=== PATIENT | female | born 1955 | race Caucasian/White ===

== ENCOUNTER → 2023-09-10 07:10 | Outpatient (REF) | payer MEDICARE, SELFPAY | LOC: RAD 07:10 | PROVIDERS: ATTENDING PHYSICIAN Internal Medicine Critical Care Medicine | DX: Z87.01 Personal history of pneumonia (recurrent) (principal) | CPT/HCPCS: 71046 ==

== ENCOUNTER → 2023-12-10 06:59 | Outpatient (REF) | payer MEDICARE, SELFPAY | LOC: HWRAD 06:59 | PROVIDERS: ATTENDING PHYSICIAN Physician Assistant Medical | DX: Z78.0 Asymptomatic menopausal state (principal) | CPT/HCPCS: 77080 ==

== ENCOUNTER → 2024-05-09 07:33 | Outpatient (REF) | payer MEDICARE, SELFPAY | LOC: RAD 07:33 | PROVIDERS: ATTENDING PHYSICIAN Physician Assistant; FAMILY PHYSICIAN Physician Assistant Medical | DX: J40 Bronchitis, not specified as acute or chronic (principal); R04.2 Hemoptysis | CPT/HCPCS: 71046 ==

== ENCOUNTER → 2024-08-18 08:07 | Outpatient (REF) | payer MEDICARE, SELFPAY ==
[2024-08-18 09:43] LABS: % Basophils 0.9 % (0-2); % Eosinophils 3.6 % (0-6); % Immature Granulocytes 0.5 % (0-0.5); % Lymphocytes 29.5 % (20.5-51.1); % Monocytes 8.3 % (1.7-9.3); % Neutrophils 57.2 % (42.2-75.2); Absolute Basophils 0.1 10^3/uL (0-0.2); Absolute Eosinophils 0.2 10^3/uL (0-0.7); Absolute Lymphocytes 1.9 10^3/uL (1.2-3.4); Absolute Monocytes 0.5 10^3/uL (0.1-0.6); Absolute Neutrophils 3.7 10^3/uL (1.4-6.5); Hematocrit 46.1 % (37.0-47.0); Hemoglobin 14.4 g/dL (12.0-16.0); Mean Corp Hgb Conc. 31.2 g/dL (33.0-37.0); Mean Corpuscular Hgb 28.9 pg (27.0-31.0); Mean Corpuscular Volume 92.6 fL (81.0-99.0); Mean Platelet Volume 10.3 fL (7.4-10.4); Nucleated Red Blood Cells % 0 %; Platelet Count 235 10^3/uL (130-400); Red Blood Cell Count 4.98 10^6/uL (4.20-5.40); Red Cell Dist. Width 13.2 % (11.5-14.5); White Blood Cell Count 6.5 10^3/uL (4.8-10.8)
[2024-08-18 10:46] LABS: Erythrocyte Sed Rate 2 mm/hour (0-20)
== END ==
LOC: RAD 08:07
PROVIDERS: ATTENDING PHYSICIAN Orthopaedic Surgery; FAMILY PHYSICIAN Physician Assistant Medical
DX: Z96.652 Presence of left artificial knee joint (principal); Z96.651 Presence of right artificial knee joint; M25.562 Pain in left knee; M25.561 Pain in right knee
CPT/HCPCS: 36415; 78315; 85025; 85652; 86140; A9503

== ENCOUNTER → 2024-10-26 06:28 | Outpatient (REF) | payer MEDICARE, SELFPAY | LOC: HWRAD 06:28 | PROVIDERS: ATTENDING PHYSICIAN Physician Assistant Medical | DX: M70.72 Other bursitis of hip, left hip (principal) | CPT/HCPCS: 73502 ==

== ENCOUNTER 2024-12-19 10:44 | Inpatient (IN) | payer MEDICARE, SELFPAY ==
[2024-12-19] VITALS (9 sets, daily range): BP systolic 123–175; BP diastolic 73–93; BMI 40.8
[2024-12-19] MEDS: CELEBREX 200 MG PO (11:00)
[2024-12-19] MEDS: TYLENOL 650 MG PO ×3 (11:01→20:22)
[2024-12-19] MEDS: NORMOSOL-R/PLASMALYTE-A 1000 IV ×2 (11:11→17:20)
--- NOTE | 2024-12-19 12:32 | W.PN.UPDATE ---
Update Note
Progress Note Update
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
- EARLY DISCHARGE
DVT prophylaxis - ASA, b/l venous foot pumps
HTN - + parameters - monitor BP
Bronchiectasis with chronic cough and previous hemoptysis
Chronic dyspnea on exertion
- Monitor O2
- IS
- Decadron
GERD - add Pepcid HS
Fibromyalgia - monitor pain and adjust pain meds as indicated
MSSA pneumonia with associated sepsis 12/2022 - IV Ancef [place]-op
- Cefadroxil upon d/c
OA s/p R TKA, 2009, and L TKA, 2007, by Dr Swanson
HLD
Venous varicosities
Chronic lymphedema
Pulmonary nodule
Diverticulosis
Nephrolithiasis
Migraines
Multilevel degenerative disc disease
Rheumatoid arthritis
Hypothyroidism
Anxiety
Prediabetes, A1c 5.7
Morbid obesity, BMI 40.4
[2024-12-19] MEDS: SUBLIMAZE 50 MCG IV ×2 (16:28→16:40)
[2024-12-19] MEDS: ROXICODONE 5 MG PO (16:54)
[2024-12-19] MEDS: CYMBALTA DELAYED RELEASE 60 MG PO (17:20)
[2024-12-19] MEDS: ASPIRIN 325 MG PO (17:20)
--- NOTE | 2024-12-19 17:28 | W.PN.UPDATE ---
Update Note
Progress Note Update
Patient seen and examined s/p R TKR revision. Complains of pain. VSS, Pulm: nonlabored. CV: Regular. Abd: benign. Ext: RLE: able to fully extend. Calf soft. NVI distally. Dressing CDI. Postop xray as expected. ASA for DVT
prophylaxis. Plan for discharge home tomorrow with outpatient PT to begin or Wednesday.
--- NOTE | 2024-12-19 17:51 | PTCARENOTE ---
pt received from [facility]. right knee dressing intact. pt stated 9/10 pain in right knee. pain med had been given in [facility] now pt states it feels better. pt oob with rw and one person min assist to bsc. 2lnc breath sounds clear.
[2024-12-19] MEDS: ROXICODONE 10 MG PO (20:19)
[2024-12-19] MEDS: COLACE 100 MG PO (20:21)
[2024-12-19] MEDS: SENOKOT 17.2 MG PO (20:21)
[2024-12-19] MEDS: SYNTHROID 175 MCG PO (20:21)
[2024-12-19] MEDS: PEPCID 20 MG PO (20:22)
[2024-12-19] MEDS: DECADRON 4 MG PO (20:22)
[2024-12-19] MEDS: LYRICA 150 MG PO (20:23)
[2024-12-19] MEDS: ANCEF 5 IV (20:24)
[2024-12-19] MEDS: BACTROBAN 2% OINTMENT 1 APPLIC NASAL (20:24)
[2024-12-19] MEDS: TOPAMAX 50 MG PO (22:29)
[2024-12-19] MEDS: ZESTRIL 20 MG PO (22:33)
[2024-12-20] MEDS: TYLENOL 650 MG PO ×3 (00:33→11:08)
[2024-12-20] MEDS: ROXICODONE 5 MG PO ×2 (00:33→05:39)
[2024-12-20 03:00] VITALS: BP 165/96
[2024-12-20] MEDS: ANCEF 5 IV (03:09)
[2024-12-20] MEDS: TYLENOL PO (04:42)
[2024-12-20] MEDS: SYNTHROID 175 MCG PO (05:39)
--- NOTE | 2024-12-20 06:03 | PTCARENOTE ---
late entry: 12/19 2014 pt with morphine allergy listed, pt states n/v post IV morphine in the past is the only reaction she has had. Jo Ann Reynolds NP notified and ok for patient to receive Roxicodone.
--- NOTE | 2024-12-20 07:05 | W.PN.ORTHO ---
Today's Communication / Plan
-
Plan for discharge home later today with outpatient PT on
Assessment
.
Distal Motor Intact: Yes
Dressing:
Clean, dry and intact.
Assessment:
Stable s/p right TKrevision
Plan
.
Surgery / Date: 12/19/2024 Revision R TKR DB
DVT Prophylaxis: Aspirin
Activity:
Out of bed.
PT/OT
Discharge Plan: Home w/ Outpatient PT
Subjective
.
.:
Patient resting comfortably. OOB to commode yesterday. Tolerating pain meds
Vital Signs and Labs
.
Vital Signs and Labs:
Temp Pulse Resp BP Pulse Ox
98.3 F 77 16 165/96 90
12/20/24 03:00 12/20/24 03:00 12/20/24 03:00 12/20/24 03:00 12/20/24 03:00
Non-invasive Hgb result: 13.4
Physical Exam
-
Pulm: nonlabored
CV: regular
RLE: Able to fully extend. NVI distally. Calf soft.
[2024-12-20 07:10] VITALS: BP 156/95
[2024-12-20] MEDS: LYRICA 150 MG PO (07:48)
[2024-12-20] MEDS: VITAMIN D3 (cholecalciferol) 50 MCG PO (07:48)
[2024-12-20] MEDS: ASPIRIN 325 MG PO (07:48)
[2024-12-20] MEDS: ROXICODONE 10 MG PO ×2 (07:49→11:53)
[2024-12-20] MEDS: DECADRON 4 MG PO (07:49)
[2024-12-20] MEDS: COLACE 100 MG PO (07:49)
[2024-12-20] MEDS: CYMBALTA DELAYED RELEASE 60 MG PO (07:50)
[2024-12-20] MEDS: CELEBREX 200 MG PO (07:50)
[2024-12-20] MEDS: VITAMIN B-12 1000 MCG PO (07:50)
[2024-12-20] MEDS: SENOKOT 17.2 MG PO (07:50)
[2024-12-20] MEDS: BACTROBAN 2% OINTMENT 1 APPLIC NASAL (07:51)
[2024-12-20 08:57] VITALS: BP 138/83; BP 160/79; PULSE 69
--- NOTE | 2024-12-20 08:59 | W.PN.ORTHO ---
Today's Communication / Plan
-
Await PT recs. Pt did well w/ OT this AM.
D/c today if remaining clinically stable.
Assessment
.
Distal Motor Intact: Yes
Dressing:
Clean, dry and intact.
Assessment:
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
- EARLY DISCHARGE
DVT prophylaxis - ASA, b/l venous foot pumps
HTN - + parameters - BPs elevated initially but improving w/ resumption of Lisinopril HS, adequate pain control
Bronchiectasis with chronic cough and previous hemoptysis
Chronic dyspnea on exertion
- O2 stable on RA w/ IS and Decadron
GERD - added Pepcid HS
Fibromyalgia - pain well tolerated by POD 1
MSSA pneumonia with associated sepsis 12/2022 - IV Ancef [place]-op
- Cefadroxil upon d/c
OA s/p R TKA, 2009, and L TKA, 2007, by Dr Swanson
HLD
Venous varicosities
Chronic lymphedema
Pulmonary nodule
Diverticulosis
Nephrolithiasis
Migraines
Multilevel degenerative disc disease
Rheumatoid arthritis
Hypothyroidism
Anxiety
Prediabetes, A1c 5.7
Morbid obesity, BMI 40.4
Post-op meds were sent during pre-operative appointment
Plan
.
Surgery / Date: Revision of R TKA w/ Dr Swanson 12/19/24
DVT Prophylaxis: Aspirin
Activity:
Out of bed.
PT/OT
Discharge Plan: Home w/ Outpatient PT
Subjective
.
.:
Patient appearing to rest comfortably in her chair.
Reporting high levels of pain overnight. Pain, fortunately, relieved w/ current pain meds.
Denies any new significant complaints.
Anxious but eager for d/c today.
Vital Signs and Labs
.
Vital Signs and Labs:
Temp Pulse Resp BP Pulse Ox
98.5 F 74 16 156/95 94
12/20/24 07:10 12/20/24 07:10 12/20/24 07:10 12/20/24 07:10 12/20/24 07:10
Non-invasive Hgb result: 13.4
Physical Exam
-
HEENT: No pallor, cyanosis, or jaundice. Throat clear.
NECK: Supple. No JVD.
RESPIRATORY: Lungs clear to auscultation.
CVS: S1, S2 normal. RRR.�
ABDOMEN: Soft, non-tender. No distension. Morbidly obese.
EXTREMITIES: Expected post-surgical R knee edema. Strength equal, no calf pain with palpation/dorsiflexion. Calves soft.
CHIEF WHARFINGER: AOx3. No focal deficits. chief technician x ray grossly intact
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
[2024-12-20 09:18] VITALS: BP 140/75; BP 141/79; PULSE 67
[2024-12-20 11:30] VITALS: BP 146/74
[2024-12-20 11:32] VITALS: BMI 40.8
--- NOTE | 2024-12-20 13:00 | PTCARENOTE ---
Discharge order written. Instructions reviewed with patient. IV site removed. Volunteer escort by wheelchair to husbands car at [facility].
== END 2024-12-20 12:47 | disposition home or self-care (01) | DRG 467 ==
LOC: 2 SOUTH 10:44
PROVIDERS: ADMITTING PHYSICIAN Orthopaedic Surgery; FAMILY PHYSICIAN Physician Assistant Medical; REFERRING PHYSICIAN Nuclear Medicine Nuclear Cardiology
PROC: 0SRC0J9 Replacement of Right Knee Joint with Synthetic Substitute, Cemented, Open Approach (ICD-10-PCS; 2024-12-19)
PROC: 0SPC0JZ Removal of Synthetic Substitute from Right Knee Joint, Open Approach (ICD-10-PCS; 2024-12-19)
DX: T84.032A Mechanical loosening of internal right knee prosthetic joint, initial encounter (principal); Z68.41 Body mass index [BMI] 40.0-44.9, adult; I10 Essential (primary) hypertension; M79.7 Fibromyalgia; E66.01 Morbid (severe) obesity due to excess calories; F41.9 Anxiety disorder, unspecified; K21.9 Gastro-esophageal reflux disease without esophagitis; E78.5 Hyperlipidemia, unspecified; I89.0 Lymphedema, not elsewhere classified; M06.9 Rheumatoid arthritis, unspecified; E03.9 Hypothyroidism, unspecified; R73.03 Prediabetes; Y79.2 Prosthetic and other implants, materials and accessory orthopedic devices associated with adverse incidents; Z88.5 Allergy status to narcotic agent; Z96.652 Presence of left artificial knee joint; Z98.41 Cataract extraction status, right eye; Z98.42 Cataract extraction status, left eye
CPT/HCPCS: 73560; 97162; 97166; 97535

== ENCOUNTER 2025-02-09 15:41 | Inpatient (IN) | payer MEDICARE, SELFPAY ==
[2025-02-09 12:11] VITALS: BP 136/82
[2025-02-09 12:33] LABS: Hematocrit 41.6 % (37.0-47.0); Hemoglobin 13.0 g/dL (12.0-16.0); Mean Corp Hgb Conc. 31.3 g/dL (33.0-37.0); Mean Corpuscular Volume 90.8 fL (81.0-99.0); Nucleated Red Blood Cells % 0 %; Platelet Count 315 10^3/uL (130-400); Red Cell Dist. Width 13.5 % (11.5-14.5)
[2025-02-09 12:50] LABS: ALT (SGPT) 29 U/L (0-35); AST (SGOT) 25 U/L (14-36); Albumin 4.5 g/dl (3.5-5.0); Alkaline Phosphatase 123 U/L (38-126); Blood Urea Nitrogen 17 mg/dl (7-17); Calcium 9.8 mg/dl (8.4-10.2); Carbon Dioxide 22 mmol/L (22-30); Chloride 110 mmol/L (98-107); Glucose 109 mg/dl (70-99); Potassium 4.4 mmol/L (3.5-5.1); Sodium 142 mmol/L (135-145); Total Protein 7.7 g/dl (6.3-8.2); eGFR > 60.00
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
[2025-02-09 16:54] LABS: C-Reactive Protein 122.50 mg/L (0.0-10.00)
--- NOTE | 2025-02-09 18:25 | PTCARENOTE ---
Patient arrived from ED @18:25 with (R) knee swelling, currently on Regular diet, will be NPO for OR tomorrow; admission questions answered at bedside, with give detailed report to nightshift RN to continue with assessment and care.
[2025-02-09 18:41] VITALS: BP 138/74
--- NOTE | 2025-02-09 18:55 | CON.ORTHO ---
Consultation
-
Date/Time Consultation Requested: 02/09/25
Date/Time Consultation Performed: 02/09/25 @6pm
Requesting Provider: hospitalist
Performing Provider: Tracey Penn PA-C, Fredo Swanson MD
Reason for Consultation: right knee drainage
Consultation - Orthopedics
History
HPI: 69yo female admitted to for right knee drainage. She is s/p right revision TKA on 12/19/[address] Swanson. She presented to the outpatient office earlier today for drainage from the distal aspect of her scar. She states that she noticed a
scab that fell off and then began to drain. She was sent to the ER from the office for admission and plan for OR tomorrow for right knee washout. Currently, she is resting in bed. She reports mild discomfort to the knee. She feels the knee looks
more red now than it did in the office earlier today.
PAST MEDICAL HISTORY: Essential Hypertension, Hyperlipidemia, Hypothyroidism, Bronchiectasis, Fibromyalgia, Migraine Headache, Rheumatoid Arthritis/Osteoarthritis, Anxiety, Chronic Lower Extremity Lymphedema, Obstructive Sleep Apnea, Morbid Obesity
due to Excess Calories
PAST SURGICAL HISTORY: Cholecystectomy, Section, Bilateral Knee Replacements, Right revision TKA
SOCIAL HISTORY: denies tobacco, alcohol. lives with family
FAMILY HISTORY: non contributory
REVIEW OF SYSTEMS: 12 point review of systems obtained and negative except those mentioned in the HPI
Allergies / Home Medications
Allergy/AdvReac Type Severity Reaction Status Date / Time
morphine (Morphine) Allergy nausea and Verified 12/19/24 10:47
vomiting
�Medication �Instructions �Recorded
duloxetine 60 mg capsule,delayed 60 mg PO DAILY Mental 01/05/23
release Health/Anxiety
levothyroxine 175 mcg tablet 175 mcg PO DAILY Thyroid 01/05/23
pregabalin 150 mg capsule 150 mg PO BID Pain 01/05/23
topiramate 50 mg tablet 50 mg PO HS Mental Health/Anxiety 01/05/23
cholecalciferol (vitamin D3) 50 50 mcg PO DAILY 12/08/24
mcg (2,000 unit) tablet
acetaminophen 500 mg tablet 1,000 mg (2 x 500 mg) PO Q6H pain 12/14/24
(Tylenol Extra Strength) #60 tabs
lisinopril 20 mg tablet 20 mg PO HS Blood Pressure #1 tab 12/14/24
oxycodone 5 mg tablet 5 mg PO Q6H PRN moderate-severe 02/09/25
pain
sulindac 200 mg tablet 200 mg PO BID 02/09/25
Vital Signs / Lab Results
Temp Pulse Resp BP Pulse Ox
99.0 F 80 18 138/74 98
02/09/25 18:41 02/09/25 18:41 02/09/25 18:41 02/09/25 18:41 02/09/25 18:41
02/09/25 12:18
02/09/25 12:18
LABS:
ESR 56
CRP 122.50
Xrays obtained in outpatient office which showed well positioned right revision TKA. no obvious fracture or dislocation
PHYSICAL EXAM:
General: AAOx3, no acute distress
HEENT: NCAT, sclera anicteric, normal hearing
Heart: No JVD
Lungs: Normal work of breathing on room air
MSK: Focused exam of right knee reveals surgical scar to anterior knee. there is a small break in the skin at the distal aspect with drainage. mild erythema about the scar. ROM 0-80. calf soft and nontender. NVI distally
Assessment / Plan
ASSESSMENT/PLAN:
Right knee drainage s/p right revision TKA 12/19/24
--WBAT RLE
--Dressing of adaptic, gauze, and kerlix to the wound. Change/reinforce as needed
--Plan for OR tomorrow for right knee I&D under the direction of Dr. Swanson
--NPO after midnight
--Please hold antibiotics until after the OR
--Pain management as needed
--ID consult
[2025-02-09] MEDS: LYRICA 150 MG PO (19:16)
[2025-02-09] MEDS: ZESTRIL 20 MG PO (21:20)
[2025-02-09] MEDS: TOPAMAX 50 MG PO (21:20)
[2025-02-09 23:10] VITALS: BP 111/44
[2025-02-10] VITALS (13 sets, daily range): BP systolic 114–182; BP diastolic 56–121; PULSE 77
[2025-02-10 06:27] LABS: Hematocrit 39.2 % (37.0-47.0); Hemoglobin 12.3 g/dL (12.0-16.0); Mean Corp Hgb Conc. 31.4 g/dL (33.0-37.0); Mean Corpuscular Volume 92.5 fL (81.0-99.0); Platelet Count 275 10^3/uL (130-400); Red Cell Dist. Width 13.6 % (11.5-14.5)
[2025-02-10] MEDS: SYNTHROID 175 MCG PO (06:38)
[2025-02-10 06:42] LABS: Blood Urea Nitrogen 13 mg/dl (7-17); Calcium 9.1 mg/dl (8.4-10.2); Carbon Dioxide 24 mmol/L (22-30); Chloride 112 mmol/L (98-107); Glucose 94 mg/dl (70-99); Potassium 4.4 mmol/L (3.5-5.1); Sodium 143 mmol/L (135-145); eGFR > 60.00
[2025-02-10] MEDS: LYRICA 150 MG PO ×2 (08:53→19:36)
[2025-02-10] MEDS: CYMBALTA DELAYED RELEASE 60 MG PO (08:53)
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
[2025-02-10] MEDS: DILAUDID 0.5 MG IV ×2 (11:58→12:09)
[2025-02-10] MEDS: TORADOL 15 MG IV (12:02)
[2025-02-10] MEDS: DILAUDID 0.25 MG IV (12:27)
--- NOTE | 2025-02-10 12:33 | W.PN.HOSP.TC ---
Today's Communication/Plan
-
OR today for I&D
F/u cultures
abx as per ID
Assessment / Plan
Assessment / Plan
Physical Exam
General: Comfortable and Conversant
HEENT: Anicteric and Moist mucous membranes
Respiratory: Clear and Non Labored Respirations
Cardiac: S1/S2 and Regular Rhythm
GI: Soft and Non Tender
Rectal: Deferred by Provider
Musculoskeletal: No Clubbing, No Cyanosis and Edema, Right Lower Extremity
Skin: Warm, Dry and Other (Increased erythema and warmth of right knee; Noted to have increased drainage from small opening along the inferior incision)
Neuro: Awake, Alert, Oriented and Nonfocal/grossly intact
Psych: Calm
Increased Redness/Swelling Right Knee, possibly infected hematoma vs prosthetic joint infection
-Consult Orthopedics
--Dressing of adaptic, gauze, and kerlix to the wound. Change/reinforce as needed
- OR today for I&D
-Hold on antibiotics pending deep cultures obtain in OR
-Consult Infectious Disease
Essential Hypertension
-Continue lisinopril
Hypothyroidism
-Continue levothyroxine
Anxiety
-Continue duloxetine
Fibromyalgia
-Continue duloxetine and pregabalin
Migraine Headache
-Continue Topamax
DVT Proph:
Code Status: Full Code
Anticipated Discharge: > 48 hours
Subjective/Interval History
-
Date of Service: February 10, 2025
no acute events
Objective Data
-
Labs:
Laboratory Results
02/10/25
05:22
WBC 6.7
Hgb 12.3
Hct 39.2
Plt Count 275
Sodium 143
Potassium 4.4
Chloride 112 H
Carbon Dioxide 24
BUN 13
Creatinine 0.8
Glucose 94
Calcium 9.1
Vital Signs:
Vital Signs
Temp Pulse Resp BP Pulse Ox
97.9 F 65 15 179/87 100
02/10/25 11:53 02/10/25 12:06 02/10/25 12:06 02/10/25 12:06 02/10/25 12:06
I&O
02/09/25 02/10/25 02/11/25
06:59 06:59 06:59
Intake Total 240 / 240
Balance 240 / 240
Review of Systems
-
All other systems: Reviewed and negative
Physical Exam
-
General: No Apparent Distress
HEENT: Negative Oxygen
Respiratory: Clear to Auscultation
Cardiac: Regular Rhythm and S1/S2; Negative Murmur or Rub
GI: Soft, Nontender and Nondistended
Musculoskeletal: No Edema
Neuro: Awake, Alert, Oriented, No Motor Deficits and Nonfocal/Grossly Intact
Data Reviewed
-
Diagnostic Radiology: Report Reviewed by me
Labs: Labs Reviewed by me
--- NOTE | 2025-02-10 13:00 | PTCARENOTE ---
Pt received from the PACU via bed. Transport was w/o incident. Pt is AAOx3, Denies nausea and reports pain as mild. Will medicate for pain as ordered when needed. Pt able to wiggle toes, point and flex right foot, DP pulse WNL. Pt reports she has
full sensation to right leg. Ice pack applied as ordered. VSS, Pt is afebrile. Pt instructed on plan of care. Call gracia within reach.
[2025-02-10] MEDS: VANCOCIN 200 IV (14:51)
[2025-02-10] MEDS: STERILE WATER FOR INJECTION 10 ML IV ×2 (17:17→21:43)
[2025-02-10] MEDS: MAXIPIME 1000 MG IV ×2 (17:17→21:43)
[2025-02-10] MEDS: ROXICODONE 5 MG PO (17:28)
[2025-02-10] MEDS: TOPAMAX 50 MG PO (21:42)
[2025-02-10] MEDS: ZESTRIL 20 MG PO (21:42)
[2025-02-11] VITALS (8 sets, daily range): BP systolic 112–171; BP diastolic 51–88; PULSE 60–64; O2SAT 95; BMI 39.7
[2025-02-11] MEDS: STERILE WATER FOR INJECTION 10 ML IV ×4 (03:53→21:25)
[2025-02-11] MEDS: MAXIPIME 1000 MG IV ×4 (03:54→21:25)
[2025-02-11 05:30] LABS: ALT (SGPT) 20 U/L (0-35); AST (SGOT) 16 U/L (14-36); Albumin 3.7 g/dl (3.5-5.0); Alkaline Phosphatase 107 U/L (38-126); Blood Urea Nitrogen 17 mg/dl (7-17); Calcium 9.4 mg/dl (8.4-10.2); Carbon Dioxide 23 mmol/L (22-30); Chloride 109 mmol/L (98-107); Glucose 119 mg/dl (70-99); Potassium 4.6 mmol/L (3.5-5.1); Sodium 138 mmol/L (135-145); Total Protein 6.4 g/dl (6.3-8.2); eGFR > 60.00
[2025-02-11 05:31] LABS: Hematocrit 36.9 % (37.0-47.0); Hemoglobin 11.6 g/dL (12.0-16.0); Mean Corp Hgb Conc. 31.4 g/dL (33.0-37.0); Mean Corpuscular Volume 92.0 fL (81.0-99.0); Platelet Count 280 10^3/uL (130-400); Red Cell Dist. Width 13.2 % (11.5-14.5)
[2025-02-11] MEDS: SYNTHROID 175 MCG PO (05:46)
--- NOTE | 2025-02-11 08:29 | W.PN.ORTHO ---
Today's Communication / Plan
-
POD#1 right knee I&D under the direction of Dr. Swanson
--WBAT RLE. Ambulate with walker as needed
--PT/OT
--Intraoperative cultures pending. Superficial culture gram stain with few WBC, rare gram negative rods. Deep culture gram stain with rare WBC, no organisms. Will continue to follow
--Blood cultures from 02/09/25 with no growth to date
--Appreciate ID consult. Currently on cefepime
--Continue with pain management as needed
--Maintain dressing
--Will continue to follow along
Assessment
.
Distal Motor Intact: Yes
Dressing:
Clean, dry and intact.
Plan
.
Surgery / Date: Right Knee I&D
Activity:
Out of bed.
PT/OT
Subjective
.
.:
Patient resting comfortably in bed this morning. She reports soreness to her knee. She has been up to the bathroom and around the room. She is ambulating with a walker.
Vital Signs and Labs
.
Vital Signs and Labs:
Lab Results
02/11/25 04:10
02/11/25 04:10
Temp Pulse Resp BP Pulse Ox
98.2 F 54 16 171/88 93
02/11/25 07:10 02/11/25 07:10 02/11/25 07:10 02/11/25 07:10 02/11/25 07:10
Physical Exam
-
Directed exam of right knee performed. Mepilex dressing in place. No drainage or erythema. Mild expected edema. Mild general TTP about the knee. ROM 0-70. Calf soft and nontender. NVI distally
[2025-02-11] MEDS: CYMBALTA DELAYED RELEASE 60 MG PO (09:16)
[2025-02-11] MEDS: LYRICA 150 MG PO ×2 (09:16→19:30)
[2025-02-11] MEDS: TYLENOL 650 MG PO (09:18)
--- NOTE | 2025-02-11 09:52 | PTOTSP ---
Presents to OT at mod I/I level with basic self care, transfers and functional mobility in room and bathroom with RW. No further OT recommended at this time. Recommend pt return to outpt PT when cleared by ortho. Will sign off
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
--- NOTE | 2025-02-11 12:03 | W.PN.HOSP.TC ---
Today's Communication/Plan
-
abx
await cultures
Assessment / Plan
Assessment / Plan
Physical Exam
General: Comfortable and Conversant
HEENT: Anicteric and Moist mucous membranes
Respiratory: Clear and Non Labored Respirations
Cardiac: S1/S2 and Regular Rhythm
GI: Soft and Non Tender
Rectal: Deferred by Provider
Musculoskeletal: No Clubbing, No Cyanosis and Edema, Right Lower Extremity
Skin: Warm, Dry and Other (Increased erythema and warmth of right knee; Noted to have increased drainage from small opening along the inferior incision)
Neuro: Awake, Alert, Oriented and Nonfocal/grossly intact
Psych: Calm
Increased Redness/Swelling Right Knee, possibly infected hematoma vs prosthetic joint infection
-Consult Orthopedics
-OR I&D on 02/10
-F/u Cultures
-blood culture on 02/10 @11:06 is actually a hematoma culture from the knee
-Cont cefepime
-Appreciate Infectious Disease
Essential Hypertension
-Continue lisinopril
Hypothyroidism
-Continue levothyroxine
Anxiety
-Continue duloxetine
Fibromyalgia
-Continue duloxetine and pregabalin
Migraine Headache
-Continue Topamax
DVT Proph:
Code Status: Full Code
Anticipated Discharge: 24 - 48 hours
Subjective/Interval History
-
Date of Service: February 11, 2025
no acute events
Objective Data
-
Labs:
Laboratory Results
02/11/25
04:10
WBC 6.2
Hgb 11.6 L
Hct 36.9 L
Plt Count 280
Sodium 138
Potassium 4.6
Chloride 109 H
Carbon Dioxide 23
BUN 17
Creatinine 0.7
Glucose 119 H
Calcium 9.4
Total Bilirubin 0.4
AST 16
ALT 20
Alkaline Phosphatase 107
Vital Signs:
Vital Signs
Temp Pulse Resp BP Pulse Ox
98.3 F 52 16 134/69 95
02/11/25 11:10 02/11/25 11:10 02/11/25 11:10 02/11/25 11:10 02/11/25 11:10
I&O
02/10/25 02/11/25 02/12/25
06:59 06:59 06:59
Intake Total 240 / 240 1060 / 1060
Balance 240 / 240 1060 / 1060
Review of Systems
-
History Source: Patient
All other systems: Not reviewed unless documented
Physical Exam
-
General: No Apparent Distress
HEENT: Negative Oxygen
Respiratory: Clear to Auscultation
Cardiac: Regular Rhythm and S1/S2; Negative Murmur or Rub
GI: Soft, Nontender and Nondistended
Musculoskeletal: No Edema (Right Knee I&D)
Neuro: Awake, Alert, Oriented, No Motor Deficits and Nonfocal/Grossly Intact
Data Reviewed
-
Diagnostic Radiology: Report Reviewed by me
Labs: Labs Reviewed by me
--- NOTE | 2025-02-11 15:26 | CM ---
Met with patient at the bedside
Pharmacy verified: [facility] @ [address]
Patient lives w/ spouse; multilevel home; 3 steps to enter; 12-13 steps to 2nd floor; railings on stairs; full bath 1st floor; her 2nd floor bath has tub w/ shower
PLOF: reports she was independent with ADLs and stairs; ambulated w/ cane; was driving; retired
other DME: CPAP
NO SNF or Home Health utilization history
will transport home
Discharge plan to be determined pending results of cultures; PT recommended that she continue with outpatient therapy
[2025-02-11] MEDS: ZESTRIL 20 MG PO (21:25)
[2025-02-11] MEDS: TOPAMAX 50 MG PO (21:25)
[2025-02-12] MEDS: MAXIPIME 1000 MG IV ×2 (04:00→10:30)
[2025-02-12] MEDS: STERILE WATER FOR INJECTION 10 ML IV ×2 (04:01→10:30)
[2025-02-12] MEDS: SYNTHROID 175 MCG PO (05:06)
[2025-02-12 05:57] VITALS: BMI 39.6
[2025-02-12 06:34] VITALS: BP 125/61
--- NOTE | 2025-02-12 07:00 | W.PN.ORTHO ---
Addendum entered and electronically signed by Edgar Swanson MD 02/12/25 12:58:
Patient seen and examined. AVSS. Feeling good. Pulm: nonlabored. CV: regular. RLE: Dressing CDI. Has been OOB ambulating. Cultures reviewed. Superficial cultures of the hematoma positive as noted. Appreciate ID input. Patient to receive
10 days of oral antibiotics at home. May be discharge home today. She has an appointment next week with me in the office and may return to PT. Appreciate hospitalist team and ID care. Patient to take ASA 325mg at home for 2 weekS after this
admission.
Original Note:
Today's Communication / Plan
-
POD#2 right knee I&D under the direction of Dr. Swanson
--WBAT RLE. Ambulate with walker as needed
--PT/OT
--Intraoperative cultures:
--Superficial gram stain with few WBC, rare gram negative rods; Culture with moderate gram negative bacilli
--Deep gram stain with rare WBC, no organisms; Culture with NGTD
--Hematoma fluid culture (in blood culture bottles) with gram negative bacilli
--Blood cultures from 02/09/25 with no growth x48 hours
--Appreciate ID consult. Currently on cefepime
--Continue with pain management as needed
--Maintain dressing
--Will continue to follow along
Assessment
.
Distal Motor Intact: Yes
Dressing:
Clean, dry and intact.
Plan
.
Surgery / Date: Right Knee I&D 02/10/25 Dr. swanson
Activity:
Out of bed.
PT/OT
Subjective
.
.:
Patient resting comfortably in bed. She reports that she did work with PT yesterday. She has been getting out of bed to the bathroom. Her whitney is much improved compared to preop
Vital Signs and Labs
.
Vital Signs and Labs:
Temp Pulse Resp BP Pulse Ox
97.9 F 53 20 125/61 98
02/12/25 06:34 02/12/25 06:34 02/12/25 06:34 02/12/25 06:34 02/12/25 06:34
Physical Exam
-
Directed exam of right knee performed. Mepilex dressing in place. No drainage or erythema. Mild expected edema. Mild general TTP about the knee. ROM 0-70. Calf soft and nontender. NVI distally
[2025-02-12 07:01] LABS: Hematocrit 38.1 % (37.0-47.0); Hemoglobin 11.8 g/dL (12.0-16.0); Mean Corp Hgb Conc. 31.0 g/dL (33.0-37.0); Mean Corpuscular Volume 93.2 fL (81.0-99.0); Platelet Count 284 10^3/uL (130-400); Red Cell Dist. Width 13.4 % (11.5-14.5)
[2025-02-12 07:25] LABS: ALT (SGPT) 17 U/L (0-35); AST (SGOT) 15 U/L (14-36); Albumin 3.6 g/dl (3.5-5.0); Alkaline Phosphatase 99 U/L (38-126); Blood Urea Nitrogen 16 mg/dl (7-17); Calcium 9.3 mg/dl (8.4-10.2); Carbon Dioxide 26 mmol/L (22-30); Chloride 109 mmol/L (98-107); Estimated Creatinine Clearance 78 ml/min; Glucose 88 mg/dl (70-99); Potassium 4.1 mmol/L (3.5-5.1); Sodium 142 mmol/L (135-145); Total Protein 6.1 g/dl (6.3-8.2); eGFR > 60.00
[2025-02-12] MEDS: LYRICA 150 MG PO (07:58)
[2025-02-12] MEDS: CYMBALTA DELAYED RELEASE 60 MG PO (07:59)
[2025-02-12] MEDS: MIRALAX 17 GRAMS PO (08:12)
[2025-02-12] MEDS: SENOKOT-S 1 TABLET PO (08:12)
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
--- NOTE | 2025-02-12 09:04 | PN.CDI ---
CDI
- -
CDI:
Physician Documentation Request
Admit Date: 02/09/25 15:41
Dear Doctor Kiki,
Clinical Indicators:
Patient admitted with right knee wound; s/p Right knee incision with irrigation and debridement 02/10.
02/10 Operative report, 'The knee was washed out with Povidine irrigation and normal saline. The soft tissues were debrided back to normal subcutaneous fat.'
Could you provide, in the progress notes further clarification regarding the debridement.
Please specify the type of debridement performed:
1. Excisional Debridement - defined as removal by excision of devitalized tissue, necrosis or slough
2. Non-excisional debridement - defined as removal of devitalized tissue, necrosis or slough by such methods as
irrigation, brushing, scrubbing or washing.
If the debridement was excisional, please also include:
1. Type of instrument used (#11 blade, #15 blade etc.)
2. What was excised (necrotic tissue, gangrenous tissue, slough etc.)
For excisional or non-excisional, please also include:
1. Depth of debridement (skin, subcutaneous tissue, fascia, muscle, bone etc)
2. Size and appearance of the wound (L, W, D, color of wound, drainage)
Use of terms such as suspected, likely, concern for, or probable (associated with a specific diagnosis that is being evaluated, monitored, or treated as if it exists) are acceptable and can be coded in the inpatient setting, when documented at the
time of discharge.
Thank you,
AMBER Clifton RN
CDI Specialist
available via tiger text
Please use your independent medical judgment in providing your response.
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
[2025-02-12 10:31] VITALS: BP 145/82; PULSE 64; O2SAT 97
--- NOTE | 2025-02-12 12:45 | W.PN.UPDATE ---
Update Note
Progress Note Update
Replying to the CDI questions. An excisional debridement was performed of devitalized tissue usind a 15 blade and included subcutaneous tissue only.
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
--- NOTE | 2025-02-12 14:53 | CM ---
CM following re: discharge planning.
Reviewed pt's chart, met with [pt and pt's brother at bedside.
Discharge order noted. Both pt and her brother are aware, expressed their agreement with discharge. IMM reviewed, placed on chart, pt has a copy.
Pt stated she ambulates with a cane and she will resume outpatient therapy at [facility]patient [facility]. Brother stated he will transport pt home. Pt stated she has scheduled outpatient therapy on .
D/C plan: home with resumptions of outpatient therapy and family support. Brother to transport.
[2025-02-12 15:12] VITALS: BP 141/72
== END 2025-02-12 15:32 | disposition home or self-care (01) | DRG 571 ==
LOC: 2 SOUTH 15:41
PROVIDERS: Emergency Medicine; Physician Assistant; Physician Assistant Medical; ADMITTING PHYSICIAN Internal Medicine; ATTENDING PHYSICIAN Internal Medicine; CONSULT PHYSICIAN Internal Medicine Infectious Disease; CONSULT PHYSICIAN Orthopaedic Surgery; EMERGENCY PHYSICIAN Emergency Medicine; FAMILY PHYSICIAN Physician Assistant Medical
PROC: 0JBN0ZZ Excision of Right Lower Leg Subcutaneous Tissue and Fascia, Open Approach (ICD-10-PCS; 2025-02-10)
PROC: 0S9C0ZX Drainage of Right Knee Joint, Open Approach, Diagnostic (ICD-10-PCS; 2025-02-10)
DX: L08.89 Other specified local infections of the skin and subcutaneous tissue (principal); Z16.24 Resistance to multiple antibiotics; S80.01XA Contusion of right knee, initial encounter; E03.9 Hypothyroidism, unspecified; E66.01 Morbid (severe) obesity due to excess calories; E78.5 Hyperlipidemia, unspecified; F41.9 Anxiety disorder, unspecified; G43.909 Migraine, unspecified, not intractable, without status migrainosus; G47.33 Obstructive sleep apnea (adult) (pediatric); I10 Essential (primary) hypertension; I89.0 Lymphedema, not elsewhere classified; J47.9 Bronchiectasis, uncomplicated; M06.9 Rheumatoid arthritis, unspecified; M79.7 Fibromyalgia; B96.89 Other specified bacterial agents as the cause of diseases classified elsewhere; Z68.39 Body mass index [BMI] 39.0-39.9, adult; Z88.5 Allergy status to narcotic agent; Z96.653 Presence of artificial knee joint, bilateral; Z79.890 Hormone replacement therapy
CPT/HCPCS: 73564; 80048; 80053; 84439; 84443; 85025; 85027; 85652; 86140; 87015; 87040; 87070; 87075; 87077; 87186; 87205; 97116; 97163; 97166; 99284